=== PATIENT | female | born 2005 | race Caucasian/White ===

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

== ENCOUNTER 2024-05-26 14:44 | Emergency (ER) | payer OTHER, SELFPAY ==
[2024-05-26 14:59] VITALS: BP 126/73; PULSE 86; RESP 20; TEMP 37; O2SAT 100
--- NOTE | 2024-05-26 15:04 | ED.URI ---
HPI - URI/Sore Throat General Chief Complaint: Upper Respiratory Infection Stated Complaint: Sore Throat History of Present Illness HPI Narrative: 19-year-old female presented for complaint of sore throat. Onset yesterday and worse this morning. Endorses mild cough runny nose. Boyfriend tested positive for strep 2 days ago. Patient denies any other complaints or concerns. Related Data Home Medications ?Medication ?Instructions ?Recorded ?Confirmed ?Last Taken ?Type norethindrone 1 mg-ethinyl 1 tablet PO DAILY 07/20/23 07/20/23 Unknown History estradiol 20 mcg (24)-iron 75 mg (4) tablet (Blisovi 24 Fe) Allergies Allergy/AdvReac Type Severity Reaction Status Date / Time No Known Allergies Allergy Verified 05/26/24 15:03 Review of Systems Review of Systems: CONSTITUTIONAL: Denies body aches, fever, chills, or sweats. EYES: Denies visual changes, redness, or discharge. ENT: Per HPI CARDIOVASCULAR: Denies chest pain, palpitations, or edema. RESPIRATORY: Denies dyspnea. GASTROINTESTINAL: Denies abdominal pain, nausea, vomiting, or diarrhea. SKIN: Denies rash MUSCULOSKELETAL: Denies back pain, joint pain, or myalgia. NEUROLOGIC: Denies headache Exam Narrative: GENERAL: well-appearing, no acute distress. EYES: conjunctivae clear ENT: Mucous membranes moist. TM pearly goldsmith with normal light reflex bilaterally; no tragal tenderness. Oropharynx mildly erythematous without lesions. Tonsils not enlarged and without exudate. No drooling, no hoarseness, no trismus, uvula midline. No tripod positioning, hot potato voice, or soft palate swelling. NECK: Supple. No lymphadenopathy CHEST: Clear to auscultation, breath sounds equal. No respiratory distress, speaks in full sentences. HEART: Regular rate and rhythm. No murmur heard. SKIN: Warm, dry, no rash. NEURO: Alert and oriented x3. Course Course Emergency Course: Patient is aware of diagnosis, understands and agrees to treatment plan. Anticipatory guidance given. Patient agrees to follow-up as directed and is aware of reasons to seek care at the emergency department. Portions of this record may have been created with voice recognition software Level of Care: Express Care Visit Vital Signs Vital signs: Vital Signs Temperature 98.6 F 05/26/24 14:59 Pulse Rate 86 05/26/24 14:59 Respiratory Rate 20 05/26/24 14:59 Blood Pressure 126/73 05/26/24 14:59 Pulse Oximetry 100 05/26/24 14:59 Oxygen Delivery Room Air 05/26/24 14:59 Temperature 98.6 F 05/26/24 14:59 Pulse Rate 86 05/26/24 14:59 Respiratory Rate 20 05/26/24 14:59 Blood Pressure 126/73 05/26/24 14:59 Pulse Oximetry 100 05/26/24 14:59 Oxygen Delivery Room Air 05/26/24 14:59 MDM - URI/Sore Throat MDM Narrative Medical decision making narrative: POS strep result reviewed with pt. Advise supportive treatments. Patient is appropriate for outpatient treatment and follow-up. Differential Diagnosis Differential diagnosis: Likely upper respiratory infection, viral infection and pharyngitis Lab Data Labs: Lab Results 05/26/24 Range/Units 14:55 POC Grp A Strep Screen Positive (Negative) Discharge Plan Discharge Clinical Impression: Strep pharyngitis Patient Disposition: Home, Self-Care Condition: Stable Instructions: Antibiotic Form, Strep Throat (ED) Additional Instructions: - Take the antibiotic as directed. Fever and sore throat typically resolve within one to three days. Most patients can return to work, school, after 12 to 24 hours of antibiotic therapy, provided you are fever free and otherwise well. -Eat and drink things that are easy to swallow, like soft foods, cool liquids, tea with honey, or popsicles . -Salt water gargles and/or may use topical anesthetic ( Chloraseptic spray) or lozenges to relieve dryness or throat pain -Alternate Tylenol and ibuprofen as needed for pain and fever as directed. -Frequent hand washing or hand senior financial accountant is one of the best ways to prevent spread of infection. Throw away the toothbrush after 24hours of antibiotic. -Follow up with primary care provider in 2-3 days if condition is not improving -Go to the ER if you have trouble breathing, cannot drink enough fluids, have muffled voice or drooling, difficulty opening your mouth, or severe swelling. Patient Language: Luxembourgish Prescriptions: New amoxicillin 500 mg tablet 1,000 mg PO DAILY 10 Days Qty: 20 0RF No Action Blisovi 24 Fe 1 mg-20 mcg (24)/75 mg (4) tablet 1 tablet PO DAILY Follow-up/Referrals: PHYSICIAN NOT ON STAFF,NONSTAFF [Primary Care Provider] - Time of Disposition: 15:12
[2024-05-26 15:12] LABS: EDSTREPNEGPOS1 Positive (Negative)
== END 2024-05-26 15:15 | disposition home or self-care (01) ==
PROVIDERS: Emergency Provider Nurse Practitioner Family
DX: J02.0 Streptococcal pharyngitis (principal)
CPT/HCPCS: 87880; 99213; G0463